=== PATIENT | female | born 1995 | race American Indian/Alaskan Native ===

== ENCOUNTER 2017-11-05 17:23 | Emergency (ER) | payer OTHER ==
[2017-11-05 17:31] VITALS: BP 158/83
[2017-11-05 17:58] LABS: Basophils % (Auto) 0.9 % (0.0-1.8); Eosinophils # (Auto) 0.1 K/mm3 (0.0-0.4); Eosinophils % (Auto) 1.2 % (0.0-4.3); Hematocrit 39.8 % (30.3-42.9); Hemoglobin 13.4 gm/dl (10.1-14.3); Lymphocytes # (Auto) 1.2 K/mm3 (1.2-5.4); Lymphocytes % (Auto) 24.2 % (13.4-35.0); Mean Corpuscular HGB Conc 34 % (30-34); Mean Corpuscular Hemoglobin 31 pg (28-32); Mean Corpuscular Volume 93 fl (79-97); Monocytes # (Auto) 0.4 K/mm3 (0.0-0.8); Monocytes % (Auto) 8.5 % (0.0-7.3); Platelet Count 228 K/mm3 (140-440); Red Blood Count 4.29 M/mm3 (3.65-5.03); Red Cell Distribution Width 13.5 % (13.2-15.2)
[2017-11-05 18:17] LABS: Alanine Aminotransferase 16 units/L (7-56); Albumin 4.4 g/dL (3.9-5); BUN/Creatinine Ratio 26; Blood Urea Nitrogen 13 mg/dL (7-17); Hemolysis Index 16
[2017-11-05 19:00] LABS: HCG Qualitative,Urine Negative (Negative)
[2017-11-05 19:01] LABS: Bacteria,Urine 4+ /HPF (Negative); Bilirubin,Urine NEG (Negative); Blood,Urine SM (Negative); Color,Urine Yellow (Yellow); Mucus,Urine 3+ /HPF; Nitrite,Urine POS (Negative); Protein,Urine <15 mg/dL mg/dL (Negative)
== END 2017-11-06 07:30 | disposition left against medical advice (07) ==
LOC: ED 17:23
DX: R10.9 Unspecified abdominal pain (principal); Z53.21 Procedure and treatment not carried out due to patient leaving prior to being seen by health care provider
CPT/HCPCS: 36415; 80053; 81001; 81025; 83690; 85025

== ENCOUNTER 2020-08-10 01:42 | Outpatient (CLI) | payer OTHER ==
[2020-08-10 01:59] VITALS: BP 131/86
[2020-08-10] MEDS ORDERED: LACTATED RINGERS 1,000 ML IV ONE (02:17)
[2020-08-10] MEDS ORDERED: BUTORPHANOL 2 MG/1 ML INJ IV PRN (02:27)
[2020-08-10] MEDS ORDERED: TERBUTALINE 1 MG/1 ML INJ SUB-Q SCH (03:00)
== END 2020-08-10 04:14 | disposition home or self-care (01) ==
LOC: TRG 01:42 → APU 01:43 → TRG 04:14
PROVIDERS: ATTEND Obstetrics & Gynecology
DX: O62.9 Abnormality of forces of labor, unspecified (principal); O26.893 Other specified pregnancy related conditions, third trimester; R11.0 Nausea; O60.03 Preterm labor without delivery, third trimester; Z3A.34 34 weeks gestation of pregnancy
CPT/HCPCS: 59025; 96360